=== PATIENT | female | born 1995 | race Caucasian/White ===

== ENCOUNTER 2025-10-21 12:57 | Outpatient (REF) | payer OTHER, SELFPAY ==
--- OUTSIDE RECORDS SUMMARY | 2025-10-18 10:45 | XMS_ITS | Encounter Summary ---
Author Organization [facility] [place] [address] Care Team Providers Care Bioinformatics Analyst Name Role Phone Physician, No Pcp Primary Care Provider Unavaila ble Reason for Visit * Reason Comments Routine Visit Encounter Details Date Type Department Care Team (Late st Contact Info) Description 10/18/2025 10:45 AM EST Routine Obstetrics and Gynecology - [address] [place], [place] [phone] Laura Snowden DO [address] [place], [place] 19 weeks gestation of (Primary Dx); Obesity in ; Subclinical hyperthyroidism Social History Tobacco Use Types Packs/Day Years Used Date Smoking Tobacco: Never Smokeless Tobacco: Never Alcohol Use Standard Drinks/Week Comments Not Currently 0 (1 standard drink = 0.6 oz pur e alcohol) Housing Instability Answer Date Recorde d Are you worried that in the next 2 months you may not have stable housing? No 08/12/2025 Food Access & Nutrition Answer Date Rec orded Do you have access to a vari ety of food including fruits and vegetables? Yes 08/12/2025 Access to Healthcare Answer Date Record ed Within the last 3 months, tammy vaughn many times did you visit the emergency department for your medical care? 0 08/12/2025 Health Literacy Answer Date Recorded How often do you need to hav e someone help you when you read instructions, pamphlets, or other written material from your doctor or pharmacy? Sometimes 08/12/2025 Caregiver: How often do you need to have someone help you when you read instructions, pamphlets, or other written material from your doctor or pharmacy? Not on file 08/12/2025 Financial Risk Answer Date Recorded How hard is it for you to pa y for the very basics like food, housing, medical care, and air conditioning / heating? Not very hard 08/12/2025 Transportation Answer Date Recorded Has the lack of transportati on kept you from meetings, work, or from getting things needed for daily living? No Has the lack of transportati on kept you from medical appointments or from getting medications? No 08/12/2025 Social Isolation Answer Date Recorded How often do you feel lonely or isolated from th ose around you? Never 08/12/2025 Food Risk Answer Date Recorded Within the past 12 months we worried whether our food would run out before we got money to buy more. Never true 08/12/2025 Within the past 12 months th e food we bought just didn't last and we didn't have money to get more. Never true 08/12/2025 Dependent Care Answer Date Recorded Do you need help finding or paying for care for your loved ones. For example, attendant child activity or elderly care for an older adult? No 08/12/2025 Education Answer Date Recorded Do you think completing more education or training, like finishing a GED, going to college, or learning a trade, would be helpful for you? N/A 08/12/2025 Employment and Income Answer Date Recor ded During the last four weeks, have you been actively looking for work? No 08/12/2025 Living Situation Answer Date Recorded What is your living situation? Unrecognized valu e 08/12/2025 Estimated Date of Delivery Comme nts Yes 03/12/2026 Based on last me nstrual period of 06/05/2025 Sex and Gender Information Value Date Recorded Sex Assigned at Not on file Legal Sex Female 8:43 PM EST Gender Identity Not on file Sexual Orientation Not on file documented as of this encounter Last Filed Vital Signs Vital Sign Reading Time Taken Comments Blood Pressure 134/79 10/18/2025 10:52 AM EST Pulse - - Temperature - - Respiratory Rate - - Oxygen Saturation - - Inhaled Oxygen Concentration - - Weight 91.2 kg (201 lb) 10/18/2025 10:52 AM EST Height - - Body Mass Index 36.76 08/25/2025 10:23 AM EDT documented in this encounter Progress Notes * Laura Snowden DO - 10/18/2025 10:45 AM EST Cynthia is a 30yo G1 at 19 2/7w presenting for NEENA visit with no concerns. She is not sure if she isfeeling movement yet or not. Denies bleeding and discharge. complicated by subclinical hyperthyroidism and maternal obesity. Discussed with Cynthia and her partner that by now they have received a letter explaining that effective Nov.08, maternity services at [facility] will be suspended. She is still a patient of [facility] collection tellervamsi continue her care here as it has been. We are collaborating with [facility] for delivery there. She expressed understanding. Visit Vitals BP 134/79 Wt 91.2 kg (201 lb) LMP 06/05/2025 BMI 36.76 kg/m?? OB Status Smoking Status Never BSA 1.92 m?? FH: at umbilicus FHT: 145bpm survey next week AFP ordered Endocrinology consult next week Follow up in 4 weeks or sooner with any concerns Laura Snowden DO documented in this encounter Plan of Treatment Upcoming Encounters Date Type Department Care Team (Late st Contact Info) Description 10/27/2025 10:00 AM EST Ancillary Procedure Maternal Medicine - [address] [phone] 11/17/2025 10:30 AM EST Routine Obstetrics and Gynecology - [facility] [address] [place] [address] [facility] [place] [phone] documented as of this encounter Results * Alpha fetoprotein, maternal (10/18/2025 11:20 AM EST) Physician Phone Number Not Provided 10/21/2025 6:24 PM EST [facility] Notes to Laboratory Not Provided 10/21/2025 6:24 PM EST [facility] Weight (lbs) 201 10/21/2025 6:24 PM EST [facility] Expected Due Date (MM/DD/YYYY) [id number] 10/21/2025 6:24 PM EST [facility] Expected Due Date Based On? LMP 10/21/2025 6:24 PM EST [facility] Twin ? No - Singletons 10/21/2025 6:24 PM EST [facility] Race White 10/21/2025 6:24 PM EST [facility] Insulin Dependent Diabetic? No 10/21/2025 6:24 PM EST [facility] Does Patient Currently Smoke Cigarettes? No 10/21/2025 6:24 PM EST [facility] Repeat Screen for Current ? No 10/21/2025 6:24 PM EST [facility] Previous w/ Neural Tube Defect? No 10/21/2025 6:24 PM EST [facility] IVF ? No 10/21/2025 6:24 PM EST [facility] Screen Result Negative Negative 10/21/2025 6:24 PM EST [facility] Age at LAZARO (years) 30 10/21/2025 6:24 PM EST [facility] Gestational Age (weeks) 19 10/21/2025 6:24 PM EST [facility] Gestational Age (days) 2 10/21/2025 6:24 PM EST [facility] Weight (lbs) 201 10/21/2025 6:24 PM EST [facility] Multiple Gestation Single 10/21/2025 6:24 PM EST [facility] Ethnic Origin White 10/21/2025 6:24 PM EST [facility] Insulin Dependent Diabetes None 10/21/2025 6:24 PM EST [facility] Smoker? No 10/21/2025 6:24 PM EST [facility] AFP 29.5 ng/mL 10/21/2025 6:24 PM EST [facility] AFP MOM 0.69 10/21/2025 6:24 PM EST [facility] Gestational Age Method LAZARO 10/21/2025 6:24 PM EST [facility] Comment:The gestational age is based on an LAZARO of 03[birth year]12/26. Interpretation SeeBelow 10/21/2025 6:24 PM EST [facility] Comment: This is the initial sample received at [facility] for MSAFP SCREEN NEGATIVE FOR NEURAL TUBE DEFECTS. Additional Test Information: The MSAFP does not provide a risk estimate or a diagnosis. Incorrect or missing information may considerably alter results. A positive report is indicated when the AFP MOM is greater than or equal to 2.20. Maternal weights less than 65 lbs or greater than 440 lbs are truncated and the AFP MOM is not adjusted beyond those limits. Assessment is adjusted for insulin-dependent diabetic status, weight, race and smoking. Previous pregnancies affected with a neural tube defect may significantly affect results. Test performed at [facility], [address], [place] [address] Anel Petersen MD, PhD - Fish Hatchery Laborer Blood Venous blood specimen / Unknown Venipuncture / Unknown 10/18/2025 11:20 AM EST 10/18/2025 11:20 AM EST Laura Snowden DO LAB BLOOD ORDERABLES Final Re sult [facility] [address] [place] [address] documented in this encounter Visit Diagnoses Diagnosis 19 weeks gestation of - Primary Obesity in Obesity complicating , childbirth, or the puerperium, unspecified as to episode of care or not applicable Subclinical hyperthyroidism Thyrotoxicosis without mention of goiter or other cause, without mention of thyrotoxic crisis or storm documented in this encounter Additional Health Concerns Assessment Noted Time PHQ-9 Depression Total Score: 0 08/24/20 25 11:27 AM EDT documented as of this encounter Care Teams Bioinformatics Analyst Relationship Specialty Start Date End Date Physician, No Pcp PCP - General 07/09/25 documented as of this encounter
--- OUTSIDE RECORDS SUMMARY | 2025-10-18 11:15 | XMS_ITS | Encounter Summary ---
Author Organization [facility] [place] [address] Care Team Providers Care Body Stylist Name Role Phone Physician, No Pcp Primary Care Provider Unavaila ble Encounter Details Date Type Department Care Team (Late st Contact Info) Description 10/18/2025 11:15 AM EST Lab Draw Station [facility] [address] [place] [address] 19 weeks gestation of Social History Tobacco Use Types Packs/Day Years [...] care for your loved ones. For example, children's institution attendant or elderly care for an older adult? [...] on file documented as of this encounter Plan of Treatment Upcoming Encounters Date Type Department Care Team (Late st Contact Info) Description 10/27/2025 10:00 AM EST Ancillary Procedure Maternal Medicine - [address] [phone] 11/17/2025 10:30 AM EST [facility] [address] [facility] [place] [address] Estrellita Doll CNM [address] [place] [phone] documented as of this encounter Procedures Procedure Name Priority Date/Time Associated Diagnosis Comments ALPHA FETOPROTEIN, MATERNAL Routine 10/18/2025 11:20 AM EST 19 weeks gestation of documented in this encounter Results * Alpha fetoprotein, maternal (10/18/2025 11:20 AM EST) Physician Phone Number Not Provided 10/21/2025 6:24 PM EST [facility] Notes to Laboratory Not Provided 10/21/2025 6:24 PM EST [facility] Weight (lbs) 201 10/21/2025 6:24 PM EST [facility] Expected Due Date (MM/DD/YYYY) [id number] 10/21/2025 6:24 PM EST [facility] Expected [...] This is the initial sample received at [facility] for MSAFP SCREEN NEGATIVE FOR NEURAL [...] may significantly affect results. Test performed at [facility], [address], [place] [address] Anel Petersen MD, PhD - Well Drill Operator Blood Venous blood specimen / Unknown Venipuncture / Unknown 10/18/2025 11:20 AM EST 10/18/2025 11:20 AM EST Laura Snowden DO LAB BLOOD ORDERABLES Final Re sult [facility] [address] [place] [address] documented in this encounter Visit Diagnoses Diagnosis 19 weeks gestation of documented in this encounter Additional Health Concerns Assessment Noted Time PHQ-9 Depression Total Score: 0 08/24/20 11:27 AM EDT documented as of this encounter Care Teams Body Stylist Relationship Specialty Start Date End Date Physician, No Pcp PCP - General 07/09/25 documented as of this encounter
[2025-10-21 15:35] LABS: Free T4 (Free Thyroxine) 1.15 ng/dL (0.71-1.85); Thyroid Stimulating Hormone < 0.01 uIU/mL (0.32-4.0)
--- OUTSIDE RECORDS SUMMARY | 2025-10-21 19:33 | XMS_ITS | Encounter Summary ---
Author Organization [facility] [place] [address] Care Team Providers Care Diversional Therapist'S Assistant Name Role Phone Physician, No Pcp Primary Care Provider Unavaila ble Encounter Details Date Type Department Care Team ([facility] st Contact Info) Description 08/30/2025 Results Follow-Up Obstetrics and Gynecology - [address] [phone] Laure Maldonado RN Social History Tobacco Use Types Packs/Day Years [...] care for your loved ones. For example, special needs child caregiver or elderly care for an older adult? [...] AM EST Ancillary Procedure Maternal Medicine - [address] [phone] 11/17/2025 10:30 AM EST Routine Obstetrics and Gynecology - [address] [place] [address] Estrellita Doll, JOAO [address] [place] [phone] documented as of this encounter Visit Diagnoses Not on filedocumented in this encounter Additional Health Concerns Assessment Noted Time PHQ-9 Depression Total Score: 0 08/24/20 11:27 AM EDT documented as of this encounter Care Teams Diversional Therapist'S Assistant Relationship Specialty Start Date End Date Physician, No Pcp PCP - General 07/09/25 documented as of this encounter
--- OUTSIDE RECORDS SUMMARY | 2025-10-21 19:33 | XMS_ITS | Encounter Summary ---
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 For example, summer child caregiver or elderly care for an [...] on file documented as of this encounter Progress Notes * Ileana Flynn - 09/03/2025 1:41 PM EDT . documented in this encounter Plan of Treatment Upcoming Encounters Date Type Department Care Team (Late st Contact Info) Description 10/27/2025 10:00 AM EST Ancillary Procedure Maternal Medicine - [place] [address] [place] [address] 11/17/2025 10:30 AM EST Routine Obstetrics and Gynecology - [facility] [place] [phone] Estrellita Doll [address] [phone] documented as of this encounter Visit Diagnoses Not on filedocumented in this encounter Additional Health Concerns Assessment Noted Time PHQ-9 Depression Total Score: 0 08/24/20 11:27 AM EDT documented as of this encounter Care Teams Rcis Relationship Specialty Start Date End Date Physician, No Pcp PCP - General 07/09/25 documented as of this encounter
--- OUTSIDE RECORDS SUMMARY | 2025-10-21 19:33 | XMS_ITS | Encounter Summary ---
Author Organization [facility] [place] [address] Care Team Providers Care Side Puller Name Role Phone Physician, No Pcp Primary Care Provider Unavaila ble Encounter Details Date Type Department Care Team (Late st Contact Info) Description 10/21/2025 Telephone Obstetrics and Gynecology - [address] [place] [phone] Estrellita Doll, SHAILESH [address] [place] [phone] Social History Tobacco Use Types Packs/Day Years [...] ed Within the last 3 months, ho w many times did you visit the emergency [...] for your loved ones. For example, children's nursery assistant or elderly care for an older adult? [...] AM EST Ancillary Procedure Maternal Medicine - [address] [phone] 11/17/2025 10:30 AM EST Routine Obstetrics and Gynecology - [address] [place] [address] Estrellita Doll CNM [address] [place] [phone] documented as of this encounter Visit Diagnoses Not on filedocumented in this encounter Additional Health Concerns Assessment Noted Time PHQ-9 Depression Total Score: 0 08/24/20 11:27 AM EDT documented as of this encounter Care Teams Side Puller Relationship Specialty Start Date End Date Physician, No Pcp PCP - General 07/09/25 documented as of this encounter
--- OUTSIDE RECORDS SUMMARY | 2025-10-21 19:33 | XMS_ITS | Clinical Summary ---
Author Organization [facility] [address] [facility] Address [address] [facility] [place] [address] Phone Care Team Providers Care Criminal Lawyer Name Role Phone Physician, No Pcp Primary Care Provider Unavaila ble Allergies Active Allergy Reactions Criticality Noted Date Comments Nectarine GI intolerance 08/25/2025 Tree Nuts Itching 08/25/2025 Rast showed allergy to walnuts only Medications vitamin iron fum-folic acid 27-0.8 mg per tablet Take 1 tablet by mouth 1 (one) time each day. Active Active Problems Problem Noted Date Diagnosed Date Carrier of fragile X chromosome 09/02/2025 Overview (09/02/2025): Horizon 14 results: INTERMEDIATE ALLELE size detected for Fragile X Syndrome (X-linked) An intermediate size 47 CGG repeat allele and a normal size 30 allele were detected in the FMR1 genes. This individual is not at increased risk to have a child with Fragile X Syndrome. In some cases, intermediate size repeat alleles can expand to a premutation (carrierstatus) in future generations. 45-54 CGG repeats: Intermediate result You are NOT at increased risk to have children with Fragile X Syndrome. There is a small chance for your children to be Fragile X p remutation carriers. You are not at risk to develop medical problems due to your intermediate Fragile X test result. About 1 in every 50 women has an intermediate result, meaning they have between 45 and 54 CGG repeats in one of their two FMR1 genes. This does not cause any known medical problems and women with this size CGG result are not at increased risk to have a child with Fragile X Syndrome Obesity in 08/25/2025 Overview (08/25/2025): BMI 34.75 HgbA1C and 1 hour GTT at initial labs ASA 162mg at 12 weeks until delivery Detailed anatomy ultrasound Repeat GTT 24-28 weeks if early is normal Pre-preg BMI 35-39.9: NST weekly at 37 weeks Pre-preg BMI >40: NST weekly at 34 weeks Pre-preg BMI >45: NST weekly at 32 weeks Growth US at 32 and 36 weeks for BMI >40 BMI of 50 by 28wks transfer to [facility] DVT prophylaxis- Lovenox if CS and BMI >35 Encounter for supervision of normal first in first trimester 08/24/2025 Overview (08/31/2025): 1. [facility] site: [facility]: [address] [place] [address] ([phone]) 2. Delivery site: [facility] 3. Dating criteria: LMP 4. Blood type: Unknown 6. Genetic screening: Date: Result: Panorama: low risk XX Horizon: Ordered Nuchal: Scheduled- 09/08 at 1100am Survey: MSAFP: 7. GBS: Date: 8. FOB name: Joseph Pappas [phone] 9. Plans A. Epidural or other pain management - B. Labor support identified - C. Tdap - Date: Flu - Date: D. Breast or Bottle feed: E. Baby's name - F. Circumcision - 10. Hospital Course: Subclinical hyperthyroidism 04/17/2022 Overview (09/08/2025): Was seen by Dr Canela - Adult endocrine 02/17/2021- recommended followup thyroid levels Lab Results Component Value Date TSH <0.05 (L) 08/25/2025 G2TWOUR 236.90 (H) 08/25/2025 09/07/25 Nuchal appt MFM recommendations: * Serial growth ultrasounds recommended. * Please obtain an MFM consultation if desired. Per UpToDate treatment is not indicated if asymptomatic Endo referral placed TrAb Component Latest Ref Rng 08/25/2025 TRAb (TSH Receptor Binding Antibody) <=1.75 IU/L 1.08 Labs: TSH, free T4, total T3 , TRAb (order # [id number]) at initial OB Urgent Endocrinology referral at diagnosis - pt referred to [place] endocrinology Propoylthiouracil first trimester (to be prescribed by Endo) Methimazole 2nd and 3rd May need a beta chaparro for symptomatic control Total T4 and triiodothyronine (T3) should be maintained at 1.5 times above the non reference range MFM consult Detailed anatomy US Growth Q4 weeks for women with TRab Inform Peds at delivery if TRab positive Deliver by due date Dysmenorrhea 06/07/2014 Estimated Date of Delivery Comme nts Yes 03/12/2026 Based on last me nstrual period of 06/05/2025 Encounters Date Type Department Care Team Description 10/21/2025 Telephone Obstetrics and Gynecology - [address] [phone] Laura Snowden DO 10/21/2025 Telephone Obstetrics and Gynecology - [address] [phone] Estrellita Doll CNM 10/18/2025 11:15 AM EST Lab Draw Station - [address] 19 weeks gestation of 10/18/2025 10:45 AM EST Routine Obstetrics and Gynecology - [address] [phone] Laura Snowden DO 19 weeks gestation of (Primary Dx); Obesity in ; Subclinical hyperthyroidism 10/11/2025 Telephone Obstetrics and Gynecology - [address] [phone] Laura Snowden DO 09/17/2025 Results Follow-Up Obstetrics and Gynecology - [address] [place] [phone] Adali Soria MA 09/16/2025 11:00 AM EDT Initial Obstetrics and Gynecology - [address] [place] [phone] Laura Snowden, DO 09/08/2025 Results Follow-Up Obstetrics [facility]necology - [facility] [place] [phone] Sunitha Pascual RN 09/07/2025 1:00 PM EDT Ancillary Procedure Maternal Medicine - [address] [phone] Encounter for routine screening for malformation using ultrasonics; Encounter for nuchal translucency testing; Encounter for screening for malformation; Obesity affecting in first trimester; Encounter for screening for nuchal translucency 09/03/2025 Telephone [facility] [phone] Laura Snowden, DO 09/02/2025 Results [facility] [address] [phone] Laura Snowden, DO 08/31/2025 Results [facility] [address] [place], [place] [address] [phone] Laura Snowden, DO 08/30/2025 Results Follow-Up Obstetrics and Gynecology - [address] [phone] Laure Maldonado RN 08/26/2025 Telephone Obstetrics and Gynecology - [address] [phone] Abbi Fagan, TIFFANI 08/25/2025 10:00 AM EDT Clinical Support Obstetrics and Gynecology - [address] [phone] Encounter for screening of mother (Primary Dx); Encounter for routine screening for malformation using ultrasonics; Encounter for nuchal translucency testing; Encounter for supervision of normal first in first trimester; Obesity in 08/13/2025 10:57 AM EDT - 08/13/2025 11:59 PM EDT Hospital Encounter Ultrasound - [facility] [address] [facility] [place] [facility] [place] [address] test positive Discharge Disposition: Home or Self Care 08/13/2025 9:30 AM EDT Office Visit Obstetrics and Gynecology - [facility] [address] [place] [phone] Yolanda Sheth, JOAO test positive (Primary Dx) from Last 3 Months Surgical History Surgery Date Site/Laterality Comments FEMUR FRACTURE SURGERY Right at 1.5 years old had t ohave pin placed Family History Medical History Relation Name Comments Asthma Father Diabetes Maternal Grandfather Allergies Maternal Grandmother Thyroid disease Mother Other: cva Paternal Grandmother Asthma Sister Breast cancer Neg Hx Prostate cancer Neg Hx Uterine cancer Neg Hx Relation Name Status Comments Father Alive 12/27/72 Maternal Grandfather Maternal Grandmother Alive Mother Alive 04/24/75 Paternal Grandfather Paternal Grandmother Sister Social History Tobacco Use Types Packs/Day Years Used Date Smoking Tobacco: Never Smokeless Tobacco: Never Tobacco Cessation:Counseling Given: Not Answered Alcohol Use Standard Drinks/Week Comments Not Currently [...] care for your loved ones. For example, child abuse worker or elderly care for an older adult? [...] on file Sexual Orientation Not on file Obstetrics History Para Term AB IAB SAB Ectopic Multiple Livin g Live Births 1 0 0 0 0 0 0 0 Date Outcome GA Total Labor Labor/2nd/3rd Weight Sex Type Anes PTL Geeta A1 A5 Name Clin Current Summary Episode Dates Number of Fetuses Estimated Date of Delivery 08/24/2025 - Present (10/21/2025) 1 03/12/2026 (set by Mary Rojo RN on 08/24/2025 based on Last Menstrual Period on 06/05/2025) Dating Summary Based On LAZARO GA Diff Last Menstrual Period on 06/05/2025 03/12/2026 Working Ultrasound on 08/13/2025 03/15/2026 -3d GA:9w3d Overview and Plan :[place] Delivery Plans Post-Delivery Plans Planned delivery method:Vaginal Feeding intentions:Exclusive Planned delivery location:[facility] Circumcis ion requested:Provider Performed Acceptable blood products:All Vitals Pregravid Weight Height TWG (As of 10/21/2025) Pregrav id BMI 86.2 kg (190 lb) 1.575 m (62 ) 4.99 kg (11 lb) 34.74 Notes Progress Notes - Routine Pre - 10/18/2025 - GA:19w2d 10/18/2025 - w2d - Laura Orosco DO Paula is a 30yo G1 at 19 2/7w presenting for NEENA visit with no concerns. She is not sure if she is feeling movement yet or not. Denies bleeding and discharge. complicated by subclinical hyperthyroidism and maternal obesity. Discussed with Paula and her partner that by now they have received a letter explaining that effective Nov.08, maternity services at [facility] will be suspended. 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 We are collaborating with [facility] for delivery there. She expressed understanding. Visit Vitals BP 134/79 Wt 91.2 kg (201 lb) LMP 06/05/2025 BMI 36.76 kg/m OB Status Smoking Status Never BSA 1.92 m FH: at umbilicus FHT: 145bpm survey next week AFP ordered Endocrinology consult next week Follow up in 4 weeks or sooner with any concerns Laura Snowden DO Progress Notes - Initial Pre - 09/16/2025 - GA:14w5d 09/16/2025 - 14w5d - Laura Orosco DO 09/16/2025 Paula Moyer HPI: Paula is a at 14w5d, Estimated Date of Delivery: 03/12/26, presenting for initial visit. Dating is based on LMP. She feels well, is eating normally with only mild self-resolving nausea. Denies VB and bothersome discharge. Her partner is aware of her and very happy/supportive. This is complicated by subclinical hyperthyroidism currently on no medication. She has an Endocrinology appt next month. Intake labs reviewed, wnl. Panorama low risk, gender reveal later this month ROS: Gen: denies persistent STEPHENS, F/C CV: denies CP and palpitations RESP: denies new cough and SOB GI: as above : denies dysuria and incontinence STREET LIGHT INSPECTOR: See HPI PSYCH: happy about the OB History Para Term AB Living 1 0 0 0 0 0 SAB IAB Ectopic Multiple Live Births 0 0 0 0 0 # Outcome Date GA Lbr Donal/2nd Weight Sex Type Anes PTL Lv 1 Current Medical History[1] Surgical History[2] Social History Socioeconomic History Marital status: Single Spouse name: Not on file Number of children: Not on file Years of education: Not on file Highest education level: Not on file Occupational History Not on file Tobacco Use Smoking status: Never Smokeless tobacco: Never Substance and Sexual Activity Alcohol use: Not Currently Drug use: Not Currently Types: Marijuana/Cannabis Comment: quit with Sexual activity: Yes Comment: for 3 years Other Topics Concern Not on file Social History Narrative Lives with mother and cousin. [employer] Finisher Helper - [employer] Pets: dog EXAM: Vitals: 09/16/25 1105 BP: 126/62 GEN: A+Ox3, NAD CV: regular rate RESP: non-labored breathing ABD: soft, NTTP, FHT 150bpm by doppler STREET LIGHT INSPECTOR: a speculum was used for a portion of this exam External Genitalia: normal with no lesions or discharge Urethra: midline without discharge Vagina: normal mucosa with scant discharge Cervix: closed, nulliparous, no CMT EXT: moves all equally PSYCH: affect appropriate Assessment: 1. 14 weeks gestation of 2. Screening for cervical cancer Pap smear 3. Obesity in 4. Subclinical hyperthyroidism Plan: Congratulated Paula on her Reviewed collaborative practice at [facility] Rn Labor And Delivery Reviewed delivery at [facility] Reviewed Laborist coverage at [facility] Reviewed first trimester warning signs and reasons to call Reviewed call system Reviewed safe medications in Labs ordered: pap, GC/CT/Trich screening Imaging ordered: NA - survey scheduled Follow up in 4 weeks or sooner with any concerns Laura Snowden DO [1] No past medical history on file. [2] Past Surgical History: Procedure Laterality Date FEMUR FRACTURE SURGERY Right at 1.5 years old had t ohave pin placed Progress Notes - Clinical Wilkinson pport - 08/25/2025 - GA:11w4d 08/25/2025 - w4d - Laure Maldonado RN Paula Moyer is a 30 y.o. old female at 11w4d. This is Planned. The patient feels happy about the . The FOB is supportive. His name is Joseph. This is their first baby. Patient's last menstrual period was Patient's last menstrual period was 06/05/2025. (exact date)., which would make her currently 11w4d with an Estimated Date of Delivery: 03/12/26. She is certain of her date. An ultrasound has been ordered to confirm dating Patient has significant history of: Question of sublclinical hyperthyroid-will send for labs with Ob panel. BMI 34 OB Past Medical History: Have you had or do you currently have: Diabetes? No Hypertension? No Heart disease, Mitral valve Prolapse, or Rheumatic fever? No An Autoimmune disease such as Lupus or Rheumatoid Arthritis? No Epilepsy, Seizures, or Spells? No Migraine Headaches? No Stroke or loss of function or sensation? No Additional Questions: Have you ever been treated for anxiety and/or depression? No Are you having problems with crying spells or loss of self-esteem? No Have you ever required psychiatric care? No Have you ever had hepatitis, liver disease or jaundice? No Have you ever been treated for blood clots in your veins, deep venous thrombosis, inflammation in the veins, thrombosis, phlebitis, pulmonary embolism or varicosities? No Have you had excessive bleeding after surgery or dental work? No Do you bleed more than other women after a cut or scratch? No Do you have a history of anemia? No Have you ever had Thyroid problems or taken Thyroid medications? Yes-? Of hyperthyroid in 2020 Do you have any other Endocrine Problems (ie. PCOS)? No Have you ever been in a major accident or suffered serious trauma? No Within the last year, has anyone hit, slapped, kicked or otherwise hurt you? No In the last year, has anyone forced you to have sex when you didn't want to? No Do you feel safe at home? Yes Have you ever received a blood transfusion? No Would you refuse a blood transfusion if a doctor judged to be medically necessary? No Would you rather than receive a blood transfusion? No If you answered yes to the above questions, is this for bahai reasons? N/A Do you know what your blood type is or if you are Rh Negative? unknown Have you ever had abnormal antibodies in your blood? unknown Have you ever had asthma? No Have you every had Tuberculosis? No Have you ever had any breast problems? No Have you ever breast fed? N/A Have you ever had any gynecological surgical procedures such as cervical conization, LEEP procedure, Laser treatment, cryosurgery of the cervix or dilation and curettage, etc? No Have you had any other surgical procedures? Yes-femur fracture repair at 1.5 yrs old Have you ever been hospitalized overnight for a non-surgical reason excluding normal delivery? No Have you ever had anesthesia complications? No Have you ever had an abnormal pap smear? No Do you have a history of abnormalties of the uterus? No Did your mother take LOY or any other hormones when she was with you? No Did it take more than one year to become ? No Have you ever been evaluated or treated for infertility? No Is there a history of medical problems in your family which you feel might adversely affect your health or ? No Do you have any other problems we have not asked you about which you feel may be important for us to know for this ? No Do you currently have any of the following symptoms since your last menstrual period: Abdominal pain, blood in the stool or urine, chest pain, shortness of breath, coughing or vomiting up blood, your heart racing or skipping beats, nausea and/or vomiting, pain on urination, or vaginal discharge or vaginal bleeding? No Genetic Screening/Teratology Counseling- Includes patient, baby's father, or anyone in either family with: Patient's age 35 years or older as of estimated date of delivery No Thalassemia (Armenian, Uruguayan, Mediterranean, or background): MCV less than 80 No Neural tube defect (Meningomyelocele, Spina bifida, or Anencephaly) No Congenital heart defect No Down syndrome No Derick-Sachs (Ashkenazi Congregational, Cajun, Citizen Of [place] Burmese) No Jia disease (Ashkenazi Congregational) No Familial dysautonomia (Ashkenazi Congregational) No Sickle cell disease or trait () No Hemophilia or other blood disorders No Muscular dystrophy No Cystic fibrosis No Delores's chorea No Intellectual disability and/or autism No If yes, was the person tested for Fragile X? N/A Other inherited genetic or chromosomal disorder No Maternal metabolic disorder (eg. Type 1 diabetes, PKU) No Patient or baby's father had child with defects not listed above No Recurrent loss, or a stillbirth No Medications (including supplements, vitamins, herbs, or OTC drugs)/illicit/recreational drugs/alcohol since last menstrual period Yes- amoxicillin for strep throat If yes, agent(s) and strength/dosage: Any other No OB Infection History: Do you object to being tested for Hepatitis B? No Do you object to being tested for HIV? No Do you feel that you are at high risk for coming contact with the AIDS virus? No Have you ever been treated for tuberculosis? No Have you ever received the BCG vaccine? No Have you ever had a positive skin test for Tuberculosis? No Do you live with someone who has Tuberculosis? No Have you ever been exposed to Tuberculosis? No Do you have Genital Herpes? No Does your partner have Genital Herpes? No Have you had a rash or viral illness since your last period? No Have you ever had Gonorrhea, Chlamydia, Syphilis, Venereal Warts, Trichomoniasis, Pelvic Inflammatory Disease (PID) or any other sexually transmitted disease? No Do you know if you are a Group B Streptococcus Carrier? unknown Did you have the Chicken Pox/Varicella? no Were you vaccinated against Chicken Pox/Varicella? yes Have you had any other infectious diseases? No Paula Moyer has been instructed on the following: random urine drug screening due to history of drug use and an initial urine drug screen has been ordered. Paula Moyer has also been informed of the rail signal designer provider recommendation for first trimester nuchal lucency testing to be performed during her . Paula Moyer has also been made aware of the time sensitive nature for this testing to be completed. . The patient now has a gestational age of 11w4d. The patient would be due for this testing prior to 14 weeks gestation which would be on 09/11/2025. Ethnicity Based Genetic Testing has been reviewed and the [employer] information sheet has been provided to the patient in their After Visit Summary. The patient was also advised that genetic testing may not be covered by all insurances. The patients states that they understand this information. The patient states that she has not had the genetic screening for Horizon 14 done in the past during a previous . The patient has agreed that she does want genetic testing for Horizon 14 and Panorama with gender-would like gender in envelope. The following Labs have been ordered: Obstetric Panel, HgA1c, Early Glucose Screen, HIV with verbal Consent, Hepatitis C, Urine Culture, UDS, Panorama with gender, and Horizon 14 panel She is aware that her insurance may or may not cover Panorama and/or Horizon 14 test and discussed lin only little for test(s) - info given today in her after visit summary . She would like to proceed with testing. For Horizon Carrier Screening, if patient has [employer], [employer] or [employer] insurances: Chooses to Bill insurance and only have the Horizon 4 Panel done (Cystic Fibrosis, Fragile X, Spinal Muscular Atrophy and Duchenne Muscular Dystrophy) Electronically signed by: Laure Maldonado RN 08/25/25 10:29 AM EDT Last Filed Vital Signs Vital Sign Reading Time Taken Comments Blood Pressure 134/79 10/18/2025 10:52 AM EST Pulse 99 08/13/2025 9:36 AM EDT Temperature - - Respiratory Rate - - Oxygen Saturation - - Inhaled Oxygen Concentration - - Weight 91.2 kg (201 lb) 10/18/2025 10:52 AM EST Height 157.5 cm (5' 2 ) 08/25/2025 10:23 AM EDT Body Mass Index 36.76 08/25/2025 10:23 AM EDT Plan of Treatment Upcoming Encounters Date Type Department Care Team (Late st Contact Info) Description 10/27/2025 10:00 AM EST Ancillary Procedure Maternal Medicine - [address] [phone] 11/17/2025 10:30 AM EST Routine Obstetrics and Gynecology - [facility] [address] [place] [address] Lavon, Estrellita, CN[address] [phone] Health Maintenance Due Date Last Done Comments DTaP,Tdap,and Td Vaccines (7 - Td or Tdap) 06/23/2019 06/23/2009, 10/28/2001, 12/27/1998, Additional history exists Cholesterol Screening (Lipid Panel) 07/09/2025 COVID-19 Vaccine ( - season) 2025 Influenza Vaccine (#1) 2025 Social Influencers of Health Screening 08/12/2026 08/12/2025 Cervical Cancer Screening: Pap Smear 09/16/2028 09/16/2025, 09/16/2025, 03/03/2019 Hepatitis B Vaccines Completed 04/07/1998, 1997, 1997 HIB Vaccines Completed 09/27/1998, 01/03, 1997, Additional history exists IPV Vaccines Completed 10/28/2001, 09/02, 07/12/1998, Additional history exists Meningococcal ACWY Vaccine Aged Out 01/24/2012 N o longer eligible based on patient's age to complete this topic HPV Vaccines Completed 03/03/2019, 01/2018, 01/03/2018 Depression Screening Completed 08/24/2025 HIV Screening Completed 08/25/2025 Hepatitis C Screening Completed 08/25/2025 Hepatitis A Vaccines Aged Out No long er eligible based on patient's age to complete this topic Meningococcal B Vaccine Aged Out No l onger eligible based on patient's age to complete this topic Pneumococcal Vaccine: Pediatrics (0 to 5 Years) and At-Risk Patients (6 to 49 Years) Aged Out No longer eligible based on patient's age to complete this topic RSV Immunization Adult Patients (No Doses Required) Completed RSV Immunization Patients Under 20 months Aged Out No longer eligible based on patient's age to complete this topic Procedures Procedure Name Priority Date/Time Associated Diagnosis Comments ALPHA FETOPROTEIN, MATERNAL Routine 10/18/2025 11:20 AM EST 19 weeks gestation of CHLAMYDIA TRACHOMATIS AND NEISSERIA GONORRHOEAE BY TMA, THINPREP Routine 09/16/2025 11:28 AM EDT Screening for cervical cancer PAP SMEAR Routine 09/16/2025 11:28 AM EDT Screening for cervical cancer HPV WITH REFLEX GENOTYPE Routine 025 11:28 AM EDT Screening for cervical cancer TRICHOMONAS VAGINALIS PCR Routine 09/16/2025 11:28 AM EDT Screening for cervical cancer US OB LESS 14 WKS NUCHAL MEASUREMENT Routine 09/07/2025 12:52 PM EDT Encounter for screening for nuchal translucency Encounter for screening for malformation Obesity affecting in first trimester US OB LESS 14 WKS SINGLE OR FIRST GESTATION Routine 09/07/2025 12:52 PM EDT Obesity affecting in first trimester Encounter for nuchal translucency testing Encounter for screening for malformation HORIZON 14, YOHANNES Routine 09/02/2025 2: 00 PM EDT PANORAMA TEST Routine 10:19 AM EDT CBC WITH AUTO DIFFERENTIAL Routine 08/25/2025 12:18 PM EDT Encounter for screening of mother GTT GESTATIONAL 1 HOUR Routine 12:18 PM EDT Encounter for screening of mother VARICELLA ZOSTER ANTIBODY IGG Routine 08/25/2025 12:18 PM EDT Encounter for screening of mother HEPATITIS B SURFACE ANTIGEN WITH CONFIRMATION Routine 08/25/2025 12:18 PM EDT Encounter for screening of mother CBC AND DIFFERENTIAL Routine 08/25/2025 12:18 PM EDT Encounter for screening of mother DRUG ABUSE SCREEN EXPANDED WITH REFLEX CONFIRMATION, URINE Routine 08/25/2025 12:18 PM EDT Encounter for screening of mother HEPATITIS C ANTIBODY Routine 08/25/2025 12:18 PM EDT Encounter for screening of mother HIV 1, 2 ANTIBODY, P24 ANTIGEN WITH REFLEX TO DIFFERENTIATION Routine 08/25/2025 12:18 PM EDT Encounter for screening of mother RUBELLA ANTIBODY IGG Routine 08/25/2025 12:18 PM EDT Encounter for screening of mother TREPONEMA PALLIDUM ANTIBODY WITH REFLEX TO RPR AND PARTICLE AGGLUTINATION Routine 08/25/2025 12:18 PM EDT Encounter for screening of mother TYPE AND SCREEN Routine 08/25/2025 12:18 PM EDT Encounter for screening of mother GLUCOSE TOLERANCE TEST, 1H GESTATION Routine 08/25/2025 12:18 PM EDT Encounter for screening of mother HEMOGLOBIN A1C Routine 08/25/2025 12:18 PM EDT Encounter for screening of mother TRIIODOTHYRONINE TOTAL Routine 12:18 PM EDT Encounter for screening of mother THYROXINE FREE Routine 08/25/2025 12:18 PM EDT Encounter for screening of mother THYROID STIMULATING HORMONE Routine 08/25/2025 12:18 PM EDT Encounter for screening of mother THYROTROPIN RECEPTOR ANTIBODY Routine 08/25/2025 12:18 PM EDT Encounter for screening of mother VENIPUNCTURE CHARGE Routine 08/25/2025 1 2:18 PM EDT Encounter for supervision of normal first in first trimester Subclinical hyperthyroidism Obesity in CULTURE URINE Routine 08/25/2025 12:18 PM EDT Encounter for screening of mother US OB LESS 14 WKS SINGLE OR FIRST GESTATION STAT 08/13/2025 11:13 AM EDT test positive POC , URINE DIAGNOSTIC Routine 08/13/2025 9:40 AM EDT test positive from Last 3 Months Results * Alpha fetoprotein, maternal (10/18/2025 11:20 AM EST) Physician Phone Number Not Provided 10/21/2025 6:24 PM EST [facility] Notes to Laboratory Not Provided 10/21/2025 6:24 PM EST [facility] Weight (lbs) 201 10/21/2025 6:24 PM EST [facility] Expected Due Date (MM/DD/YYYY) [id number] 10/21/2025 6:24 PM EST [facility] Expected [...] Age Method LAZARO 10/21/2025 6:24 PM EST [facility] Comment:The gestational age is based on an LAZARO of 03/[birth year]/26. Interpretation SeeBelow 10/21/2025 6:24 PM EST [facility] Comment: This is the initial sample received at [facility] for MSAFP SCREEN NEGATIVE FOR NEURAL [...] may significantly affect results. Test performed at [facility], [address], [place] [address] Anel Petersen MD, PhD - Information Security Blood Venous blood specimen / Unknown Venipuncture / Unknown 10/18/2025 11:20 AM EST 10/18/2025 11:20 AM EST Laura Snowden DO LAB BLOOD ORDERABLES Final Re sult [facility] [address] [place] [address] * Chlamydia trachomatis and neisseria gonorrhoeae by tma, thinprep (09/16/2025 11:28 AM EDT) N. gonorrhoeae, RNA Probe Negative Negative LAB MICROBIOLOGY METHOD 09/17/2025 11:36 AM EDT [facility] Chlamydia, RNA Probe Negative Negative LAB MICROBIOLOGY METHOD 09/17/2025 11:36 AM EDT [facility] Brushing/Spatula Cervix uteri structure / Unknown 09/16/2025 11:28 AM EDT 09/17/2025 6:52 AM EDT us Laura Snowden DO LAB CYTOLOGY ORDERABLES Final Result Performing Organization Address [facility]/ZIP Co de Phone Number [facility] [address] [place] [address], [place] [phone] * HPV with reflex genotype (09/16/2025 11:28 AM EDT) HPV Negative Negative LAB MICROBIOLOGY METHOD 09/17/2025 2:52 PM EDT [facility] Brushing/Spatula Cervix uteri structure / Unknown 09/16/2025 11:28 AM EDT 09/17/2025 6:52 AM EDT us Laura Snowden DO LAB MOLECULAR DIAGNOSTICS ORD ERABLES Final Result Performing Organization Address [facility]/ZIP Co de Phone Number [facility] [address] [place] [address], [place] [phone] * Trichomonas vaginalis molecular study (09/16/2025 11:28 AM EDT) [facility] Trichomonas vaginalis Negative Negative LAB MICROBIOLOGY METHOD 09/17/2025 11:51 AM EDT [facility] Brushing/Spatula Cervix uteri structure / Unknown 09/16/2025 11:28 AM EDT 09/17/2025 6:52 AM EDT us Laura Snowden DO LAB BLOOD ORDERABLES Final Re sult Performing Organization Address City/[facility]/ZIP Co de Phone Number [facility] [address] [place] [address], [place] [phone] * Pap smear (09/16/2025 11:28 AM EDT) Interpretation Negative for intraepithelial lesion or malignancy 09/27/2025 3:14 PM EDT [facility] at 1514 EDT General Categorization Negative 09/27/2025 3:14 PM EDT [facility] Specimen Adequacy Satisfactory for evaluation, endocervical/william sformation zone component absent 09/27/2025 3:14 PM EDT [facility] Pap Methodology Liquid Based Pap Test 09/27/2025 3:14 PM EDT [facility] Disclaimer The Pap test is a screening test which carries an inherent false negative rate. These test results should be correlated with the patient's clinical findings and history. This Pap test was processed using an automated screening system. Technical cytopathology services provided by [facility], at [address] [place] [address] (CLIA # [id number]/Sunshine Maldonado MD, Information Security.) 09/27/2025 3:14 PM EDT [facility] Console Pap Interpretation Reported 09/27/2025 3:14 PM EDT [facility] Brushing/Spatula Cervix uteri structure / Unknown 09/16/2025 11:28 AM EDT 09/16/2025 11:28 AM EDT us Laura Snowden DO LAB CYTOLOGY ORDERABLES Final Result [facility] [address] [place] [address], [place] [phone] * US OB Less 14 Wks Nuchal Measurement (09/07/2025 12:52 PM EDT) Anatomical Region Laterality Modality Body Ultrasound 09/07/2025 12:2 0 PM EDT Narrative 09/08/2025 10:56 AM EDT OBSTETRICS REPORT (Signed Final 09/08/2025 10:56 am) PATIENT INFO: ID #: [id number] : [birth year] (30 yrs)(F) Name: PAULA MOYER Visit Date: 09/07/2025 12:20 pm PERFORMED BY: Attending: Jaimee Diaz MD Performed By: Sarah Tomas RDVT Referred By: Laura Snowden DO Ref. Address: [address] [place] [address] Location: [facility]) SERVICE(S) PROVIDED: US < 14 weeks Abdominal Ultrasound 98465 US Nuchal Translucency 06552 INDICATIONS: Encounter for screening for nuchal Z36.82 translucency Encounter for screening for Z36.3 malformations Obesity complicating , 1st O99.211 trimester 13 weeks gestation of Z3A.13 TECHNIQUE/SCAN QUALITY: Technique: Transabdominal Scan Satisfactory Quality: OB HISTORY: : 1 Term: 0 Brady: 0 SAB: 0 TOP: 0 Ectopic: 0 Livin VITAL SIGNS: Weight (lb) Height BMI 190 5'2 34.75 EVALUATION: Number Of Fetuses: 1 Preg. Location: Intrauterine Heart Rate(bpm): 147 Cardiac Activity: Observed Regular rhythm Presentation: Vertex Placenta Location: Anterior Appearance: Grade 0 Cord Insertion: Visualized Amniotic Fluid YAJAIRA FV: Within Normal Limits BIOMETRY: GESTATIONAL AGE: LMP: 13w 3d Date: 06/05/25 LAZARO: 03/12/26 Best: 13w 3d Det. By: LMP (06/05/25) LAZARO: 03/12/26 1ST TRIMESTER GENETIC SONOGRAM SCREENING: CRL: 66.65 mm G.Age: 13w 0d LAZARO: 03/15/26 Nuc Trans: 1.9 mm Nasal Bone: Present STANDARD ANATOMY: Cranium: Normal appearance Choroid Plexus: Normal appearance Nasal Bone: Present Diaphragm: Normal appearance Stomach: Normal appearance Abdomen: Normal appearance Abdominal Wall: Normal appearance Cord Vessels: Normal 3-Vessel Cord Kidneys: Normal appearance Bladder: Normal appearance Spine: Normal appearance Upper Extremities: Seen Lower Extremities: Seen Other: Cardiac angle is 57.91 degrees CERVIX UTERUS ADNEXA: Cervix Within Normal Limits Abdominally Uterus Size(cm) 13.76 x 8.09 x 7.51 Uterus Vol(ml): 437.73 Anteverted, anteflexed. Within Normal Limits Right Ovary Normal in size and appearance. It is found between the uterus and the pelvic sidewall. Left Ovary Size(cm) 1.91 x 2.1 x 2.82 Vol(ml): 5.92 Normal in size and appearance. It is found between the uterus and the pelvic sidewall. Cul De Sac There is no free fluid in the cul de sac. Adnexa Both adnexae appear unremarkable. COMMENTS: Ms. Moyer is being seen for first trimester screening for aneuploidy. - Her medical history is significant for hyperthyroidism. She was seen by endocrinology. - This is her first . - She had cell free DNA screening. Results were low-risk for all conditions assessed. - Ultrasound findings: The nuchal translucency measurement is < 95th% for the gestational age. - biometry is consistent with dates. Assessment of the anatomy is appropriate for the gestational age. There are no ultrasound findings to suggest aneuploidy. - Plan: 1. A detailed ultrasound and cervical length screening for risk of have been scheduled. - 2. The patient should be offered second trimester MSAFP only, to assess for risk of an open neural tube defect. - 3. Serial growth ultrasounds recommended. - 4. Please obtain an MFM consultation if desired. This ultrasound was read remotely by the physician. Thus, the physician did not communicate/discuss the findings or the limitations of this ultrasound with the patient. T Jaimee Diaz MD Electronically Signed Final Report 09/08/2025 10:56 am Procedure Jaimee Cleveland MD - 09/08/2025 OBSTETRICS REPORT (Signed Final 09/08/2025 10:56 am) PATIENT INFO: ID #: [id number] : [birth year] (30 yrs)(F) Name: PAULA MOYER Visit Date: 09/07/2025 12:20 pm PERFORMED BY: Attending: Jaimee Diaz MD Performed By: Sarah Tomas [facility] Referred By: Laura Snowden DO Ref. Address: [address] [place] [address] Location: [facility] SERVICE(S) PROVIDED: US < 14 weeks Abdominal Ultrasound 90028 US Nuchal Translucency 04185 INDICATIONS: Encounter for screening for nuchal Z36.82 translucency Encounter for screening for Z36.3 malformations Obesity complicating , 1st O99.211 trimester 13 weeks gestation of Z3A.13 TECHNIQUE/SCAN QUALITY: Technique: Transabdominal Scan Satisfactory Quality: OB HISTORY: : 1 Term: 0 Brady: 0 SAB: 0 TOP: 0 Ectopic: 0 Livin VITAL SIGNS: Weight (lb) Height BMI 190 5'2 34.75 EVALUATION: Number Of Fetuses: 1 Preg. Location: Intrauterine Heart Rate(bpm): 147 Cardiac Activity: Observed Regular rhythm Presentation: Vertex Placenta Location: Anterior Appearance: Grade 0 Cord Insertion: Visualized Amniotic Fluid YAJAIRA FV: Within Normal Limits BIOMETRY: GESTATIONAL AGE: LMP: 13w 3d Date: 06/05/25 LAZARO: 03/12/26 Best: 13w 3d Det. By: LMP (06/05/25) LAZARO: 03/12/26 1ST TRIMESTER GENETIC SONOGRAM SCREENING: CRL: 66.65 mm G.Age: 13w 0d LAZARO: 03/15/26 Nuc Trans: 1.9 mm Nasal Bone: Present STANDARD ANATOMY: Cranium: Normal appearance Choroid Plexus: Normal appearance Nasal Bone: Present Diaphragm: Normal appearance Stomach: Normal appearance Abdomen: Normal appearance Abdominal Wall: Normal appearance Cord Vessels: Normal 3-Vessel Cord Kidneys: Normal appearance Bladder: Normal appearance Spine: Normal appearance Upper Extremities: Seen Lower Extremities: Seen Other: Cardiac angle is 57.91 degrees CERVIX UTERUS ADNEXA: Cervix Within Normal Limits Abdominally Uterus Size(cm) 13.76 x 8.09 x 7.51 Uterus Vol(ml): 437.73 Anteverted, anteflexed. Within Normal Limits Right Ovary Normal in size and appearance. It is found between the uterus and the pelvic sidewall. Left Ovary Size(cm) 1.91 x 2.1 x 2.82 Vol(ml): 5.92 Normal in size and appearance. It is found between the uterus and the pelvic sidewall. Cul De Sac There is no free fluid in the cul de sac. Adnexa Both adnexae appear unremarkable. COMMENTS: Ms. Moyer is being seen for first trimester screening for aneuploidy. - Her medical history is significant for hyperthyroidism. She was seen by endocrinology. - This is her first . - She had cell free DNA screening. Results were low-risk for all conditions assessed. - Ultrasound findings: The nuchal translucency measurement is < 95th% for the gestational age. - biometry is consistent with dates. Assessment of the anatomy is appropriate for the gestational age. There are no ultrasound findings to suggest aneuploidy. - Plan: 1. A detailed ultrasound and cervical length screening for risk of have been scheduled. - 2. The patient should be offered second trimester MSAFP only, to assess for risk of an open neural tube defect. - 3. Serial growth ultrasounds recommended. - 4. Please obtain an MFM consultation if desired. This ultrasound was read remotely by the physician. Thus, the physician did not communicate/discuss the findings or the limitations of this ultrasound with the patient. T Jaimee Diaz MD Electronically Signed Final Report 09/08/2025 10:56 am us Laura Snowden DO IMG OB US PROCEDURES Final Re sult * US OB Less 14 Wks Single or First Gestation (09/07/2025 12:52 PM EDT) Only the most recent of2 resultswithin the time period is included. Anatomical Region Laterality Modality Body Ultrasound 09/07/2025 12:2 0 PM EDT Narrative 09/08/2025 10:56 AM EDT OBSTETRICS REPORT (Signed Final 09/08/2025 10:56 am) PATIENT INFO: ID #: [id number] : [birth year] (30 yrs)(F) Name: PAULA MOYER Visit Date: 09/07/2025 12:20 pm PERFORMED BY: Attending: Jaimee Diaz MD Performed By: Sarah Tomas RDVT Referred By: Laura Snowden DO Ref. Address: [address] [place] [address] Location: [facility] SERVICE(S) PROVIDED: US < 14 weeks Abdominal Ultrasound 28273 US Nuchal Translucency 23921 INDICATIONS: Encounter for screening for nuchal Z36.82 translucency Encounter for screening for Z36.3 malformations Obesity complicating , 1st O99.211 trimester 13 weeks gestation of Z3A.13 TECHNIQUE/SCAN QUALITY: Technique: Transabdominal Scan Satisfactory Quality: OB HISTORY: : 1 Term: 0 Brady: 0 SAB: 0 TOP: 0 Ectopic: 0 Livin VITAL SIGNS: Weight (lb) Height BMI 190 5'2 34.75 EVALUATION: Number Of Fetuses: 1 Preg. Location: Intrauterine Heart Rate(bpm): 147 Cardiac Activity: Observed Regular rhythm Presentation: Vertex Placenta Location: Anterior Appearance: Grade 0 Cord Insertion: Visualized Amniotic Fluid YAJAIRA FV: Within Normal Limits BIOMETRY: GESTATIONAL AGE: LMP: 13w 3d Date: 06/05/25 LAZARO: 03/12/26 Best: 13w 3d Det. By: LMP (06/05/25) LAZARO: 03/12/26 1ST TRIMESTER GENETIC SONOGRAM SCREENING: CRL: 66.65 mm G.Age: 13w 0d LAZARO: 03/15/26 Nuc Trans: 1.9 mm Nasal Bone: Present STANDARD ANATOMY: Cranium: Normal appearance Choroid Plexus: Normal appearance Nasal Bone: Present Diaphragm: Normal appearance Stomach: Normal appearance Abdomen: Normal appearance Abdominal Wall: Normal appearance Cord Vessels: Normal 3-Vessel Cord Kidneys: Normal appearance Bladder: Normal appearance Spine: Normal appearance Upper Extremities: Seen Lower Extremities: Seen Other: Cardiac angle is 57.91 degrees CERVIX UTERUS ADNEXA: Cervix Within Normal Limits Abdominally Uterus Size(cm) 13.76 x 8.09 x 7.51 Uterus Vol(ml): 437.73 Anteverted, anteflexed. Within Normal Limits Right Ovary Normal in size and appearance. It is found between the uterus and the pelvic sidewall. Left Ovary Size(cm) 1.91 x 2.1 x 2.82 Vol(ml): 5.92 Normal in size and appearance. It is found between the uterus and the pelvic sidewall. Cul De Sac There is no free fluid in the cul de sac. Adnexa Both adnexae appear unremarkable. COMMENTS: Ms. Moyer is being seen for first trimester screening for aneuploidy. - Her medical history is significant for hyperthyroidism. She was seen by endocrinology. - This is her first . - She had cell free DNA screening. Results were low-risk for all conditions assessed. - Ultrasound findings: The nuchal translucency measurement is < 95th% for the gestational age. - biometry is consistent with dates. Assessment of the anatomy is appropriate for the gestational age. There are no ultrasound findings to suggest aneuploidy. - Plan: 1. A detailed ultrasound and cervical length screening for risk of have been scheduled. - 2. The patient should be offered second trimester MSAFP only, to assess for risk of an open neural tube defect. - 3. Serial growth ultrasounds recommended. - 4. Please obtain an M consultation if desired. This ultrasound was read remotely by the physician. Thus, the physician did not communicate/discuss the findings or the limitations of this ultrasound with the patient. T Jaimee Diaz MD Electronically Signed Final Report 09/08/2025 10:56 am Procedure Jaimee Cleveland MD - 09/08/2025 OBSTETRICS REPORT (Signed Final 09/08/2025 10:56 am) PATIENT INFO: ID #: [id number] : [birth year] (30 yrs)(F) Name: PAULA MOYER Visit Date: 09/07/2025 12:20 pm PERFORMED BY: Attending: Jaimee Diaz MD Performed By: Sarah Tomas RDMS Referred By: Laura Sp MANE Ref. Address: [address] [place] [address] Location: [facility] SERVICE(S) PROVIDED: US < 14 weeks Abdominal Ultrasound 74762 US Nuchal Translucency 42603 INDICATIONS: Encounter for screening for nuchal Z36.82 translucency Encounter for screening for Z36.3 malformations Obesity complicating , 1st O99.211 trimester 13 weeks gestation of Z3A.13 TECHNIQUE/SCAN QUALITY: Technique: Transabdominal Scan Satisfactory Quality: OB HISTORY: : 1 Term: 0 Brady: 0 SAB: 0 TOP: 0 Ectopic: 0 Livin VITAL SIGNS: Weight (lb) Height BMI 190 5'2 34.75 EVALUATION: Number Of Fetuses: 1 Preg. Location: Intrauterine Heart Rate(bpm): 147 Cardiac Activity: Observed Regular rhythm Presentation: Vertex Placenta Location: Anterior Appearance: Grade 0 Cord Insertion: Visualized Amniotic Fluid YAJAIRA FV: Within Normal Limits BIOMETRY: GESTATIONAL AGE: LMP: 13w 3d Date: 06/05/25 LAZARO: 03/12/26 Best: 13w 3d Det. By: LMP (06/05/25) LAZARO: 03/12/26 1ST TRIMESTER GENETIC SONOGRAM SCREENING: CRL: 66.65 mm G.Age: 13w 0d LAZARO: 03/15/26 Nuc Trans: 1.9 mm Nasal Bone: Present STANDARD ANATOMY: Cranium: Normal appearance Choroid Plexus: Normal appearance Nasal Bone: Present Diaphragm: Normal appearance Stomach: Normal appearance Abdomen: Normal appearance Abdominal Wall: Normal appearance Cord Vessels: Normal 3-Vessel Cord Kidneys: Normal appearance Bladder: Normal appearance Spine: Normal appearance Upper Extremities: Seen Lower Extremities: Seen Other: Cardiac angle is 57.91 degrees CERVIX UTERUS ADNEXA: Cervix Within Normal Limits Abdominally Uterus Size(cm) 13.76 x 8.09 x 7.51 Uterus Vol(ml): 437.73 Anteverted, anteflexed. Within Normal Limits Right Ovary Normal in size and appearance. It is found between the uterus and the pelvic sidewall. Left Ovary Size(cm) 1.91 x 2.1 x 2.82 Vol(ml): 5.92 Normal in size and appearance. It is found between the uterus and the pelvic sidewall. Cul De Sac There is no free fluid in the cul de sac. Adnexa Both adnexae appear unremarkable. COMMENTS: Ms. Moyer is being seen for first trimester screening for aneuploidy. - Her medical history is significant for hyperthyroidism. She was seen by endocrinology. - This is her first . - She had cell free DNA screening. Results were low-risk for all conditions assessed. - Ultrasound findings: The nuchal translucency measurement is < 95th% for the gestational age. - biometry is consistent with dates. Assessment of the anatomy is appropriate for the gestational age. There are no ultrasound findings to suggest aneuploidy. - Plan: 1. A detailed ultrasound and cervical length screening for risk of have been scheduled. - 2. The patient should be offered second trimester MSAFP only, to assess for risk of an open neural tube defect. - 3. Serial growth ultrasounds recommended. - 4. Please obtain an MFM consultation if desired. This ultrasound was read remotely by the physician. Thus, the physician did not communicate/discuss the findings or the limitations of this ultrasound with the patient. T Jaimee Diaz MD Electronically Signed Final Report 09/08/2025 10:56 am Laura Snowden DO IMG OB US PROCEDURES Final Re sult * Horizon 14 (09/02/2025 2:00 PM EDT) Blood Venous blood specimen / Unknown Laura Snowden DO LAB BLOOD ORDERABLES Final Re sult * Panorama test (08/30/2025 10:19 AM EDT) Blood Venous blood specimen / Unknown Laura Snowden DO LAB BLOOD ORDERABLES Final Re sult * Hepatitis C antibody (08/25/2025 12:18 PM EDT) Hepatitis C Antibody Negative Negative LAB CHEMISTRY METHOD 08/25/2025 5:38 PM EDT [facility] Blood Venous blood specimen / Unknown Venipuncture / Unknown 08/25/2025 12:18 PM EDT 08/25/2025 12:27 PM EDT Laura Snowden LAB BLOOD ORDERABLES Final Re sult Performing Organization Address [facility]/ZIP Co de Phone Number [facility] [address] [place] [address], [place] [phone] * HIV 1,2 antibody, p24 antigen with reflex to differentiation (08/25/2025 12:18 PM EDT) HIV Combo AB/AG Negative Negative LAB CHEMISTRY METHOD 08/25/2025 5:38 PM EDT [facility] Blood Venous blood specimen / Unknown Venipuncture / Unknown 08/25/2025 12:18 PM EDT 08/25/2025 12:27 PM EDT Narrative [facility] - 08/25/2025 5:38 PM EDT This assay is a 4th generation assay allowing for earlier detection of HIV infection by detecting the presence of the HIV-1 p24 antigen as well as the traditional antibodies to HIV type 1 (including group O) and type 2. Use of a 4th generation assay is the current CDC recommendation for HIV screening. Laura Snowden LAB BLOOD ORDERABLES Final Re sult Performing Organization Address [facility] Co de Phone Number [facility] [address] [place] [address], [place] [phone] * Hepatitis B surface antigen with reflex to confirmation (08/25/2025 12:18 PM EDT) Hepatitis B Surface Ag Negative Negative LAB CHEMISTRY METHOD 08/25/2025 5:10 PM EDT [facility] Blood Venous blood specimen / Unknown Venipuncture / Unknown 08/25/2025 12:18 PM EDT 08/25/2025 12:27 PM EDT Narrative [facility] - 08/25/2025 5:10 PM EDT Over the counter supplements containing high doses of biotin may interfere with this assay. If interference is suspected, patients shoud be retested after refraining from biotin supplements for 72 hours. [facility] LAB BLOOD ORDERABLES Final Re sult Performing Organization Address [facility]/ZIP Co de Phone Number [facility] [address] [place] [address], [place] [phone] * Treponema pallidum antibody with reflex to RPR and particle agglutination (08/25/2025 12:18 PM EDT) [facility] T. Pallidum Antibodies Negative Negative LAB CHEMISTRY METHOD 08/25/2025 6:34 PM EDT [facility] Blood Venous blood specimen / Unknown Venipuncture / Unknown 08/25/2025 12:18 PM EDT 08/25/2025 12:27 PM EDT [facility] LAB BLOOD ORDERABLES Final Re sult Performing Organization Address [facility] Co de Phone Number [facility] [address] [place] [address], [place] [phone] * Venipuncture charge (08/25/2025 12:18 PM EDT) [facility] Extra Tube Hold for add-ons. 08/25/2025 2:01 PM EDT [facility] Comment:Auto resulted. Blood Venous blood specimen / Unknown Venipuncture / Unknown 08/25/2025 12:18 PM EDT 08/25/2025 12:27 PM EDT [facility] LAB BLOOD ORDERABLES Final Re sult Performing Organization Address [facility]/ZIP Co de Phone Number [facility] [address] [place] [address], [place] [phone] * GTT gestational 1 hour (08/25/2025 12:18 PM EDT) Pathologist [facility] Glucose, 1 HR Gestational 97 <140 mg/dL LAB CHEMISTRY METHOD 08/25/2025 4:43 PM EDT [facility] Blood Venous blood specimen / Unknown Venipuncture / Unknown 08/25/2025 12:18 PM EDT 08/25/2025 12:27 PM EDT Narrative [facility] - 08/25/2025 4:43 PM EDT Gestational Diabetes Challenge Reference Range: 1 hour Glucose <140 mg/dL us Laura Snowden DO LAB BLOOD ORDERABLES Final Re sult [facility] [address] [place] [address], * Drug abuse screen expanded with reflex confirmation, urine (08/25/2025 12:18 PM EDT) [facility] Amphetamine Screen, Ur Negative Negative LAB CHEMISTRY METHOD 08/25/2025 6:22 PM EDT [facility] Comment:Certain OTC medicati ons containing ephedrine, phenylephrine, pseudoephedrine and phenylpropanolamine can cause false positive results. Barbiturate Screen, Ur Negative Negative LAB CHEMISTRY METHOD 08/25/2025 6:22 PM EDT [facility] Benzodiazepine Screen, Ur Negative Negative LAB CHEMISTRY METHOD 08/25/2025 6:22 PM EDT [facility] Cocaine Screen, Ur Negative Negative LAB CHEMISTRY METHOD 08/25/2025 6:22 PM EDT [facility] Opiate Screen, Ur Negative Negative LAB CHEMISTRY METHOD 08/25/2025 6:22 PM EDT [facility] Cannabinoid (THC) Screen, Ur Negative Negative LAB CHEMISTRY METHOD 08/25/2025 6:22 PM T [facility] Comment:Specimens from patie nts taking pantoprazole sodium (Protonix) have been shown to produce false positive results. Fentanyl, Ur Negative Negative LAB CHEMISTRY METHOD 08/25/2025 6:22 PM EDT [facility] Oxycodone Screen, Ur Negative Negative LAB CHEMISTRY METHOD 08/25/2025 6:22 PM EDT [facility] Urine Urine specimen obtained by clean catch procedure / Unknown Non-blood Collection / Unknown 08/25/2025 12:18 PM EDT 08/25/2025 12:27 PM EDT Narrative [facility] - 08/25/2025 6:22 PM EDT Assay cutoffs: Amphetamines 1000 ng/mL Barbiturates 200 ng/mL Benzodiazepines 200 ng/mL Cocaine 300 ng/mL Fentanyl 1 ng/mL Opiates 300 ng/mL Oxycodone 100 ng/mL THC 50 ng/mL Semi-quantitative assay for screening purposes only. Unconfirmed screening result should not be used for non-medical purposes. *POSITIVE RESULTS ARE AUTOMATICALLY SENT FOR ALTERNATE METHOD CONFIRMATION* Laura Snowden DO LAB URINE ORDERABLES Final Re sult [facility] [address] [place] [address], [place] [phone] * CBC auto differential (08/25/2025 12:18 PM EDT) WBC 6.6 4.8 - 10.8 K/mcL LAB HEMETOLOGY METHOD 08/25/2025 2:08 PM EDT [facility] RBC 4.00 3.80 - 4.80 M/mcL LAB HEMETOLOGY METHOD 08/25/2025 2:08 PM EDT [facility] Hemoglobin 12.0 11.5 - 16.0 g/dL LAB HEMETOLOGY METHOD 08/25/2025 2:08 PM EDT [facility] Hematocrit 35.2 35.0 - 47.0 % LAB HEMETOLOGY METHOD 08/25/2025 2:08 PM EDT [facility] MCV 88.7 79.0 - 98.0 FL LAB HEMETOLOGY METHOD 08/25/2025 2:08 PM EDT [facility] MCH 30.2 27.0 - 32.0 pcg LAB HEMETOLOGY METHOD 08/25/2025 2:08 PM [facility] MCHC 34.1 32.0 - 37.0 g/dL LAB HEMETOLOGY METHOD 08/25/2025 2:08 PM [facility] RDW 12.0 11.0 - 15.0 % LAB HEMETOLOGY METHOD 08/25/2025 2:08 PM [facility] Platelets 310 130 - 400 K/mcL LAB HEMETOLOGY METHOD 08/25/2025 2:08 PM [facility] MPV 10.1 7.0 - 11.0 FL LAB HEMETOLOGY METHOD 08/25/2025 2:08 PM [facility] NRBC 0.0 <1.0 % LAB HEMETOLOGY METHOD 08/25/2025 2:08 PM [facility] NRBC Absolute 0.00 <0.10 K/mcL LAB HEMETOLOGY METHOD 08/25/2025 2:08 PM [facility] Neutrophils Relative 69.6 % LAB HEMETOLOGY METHOD 08/25/2025 2:08 PM [facility] Lymphocytes Relative 20.6 % LAB HEMETOLOGY METHOD 08/25/2025 2:08 PM [facility] Monocytes Relative 7.7 % LAB HEMETOLOGY METHOD 08/25/2025 2:08 PM [facility] Eosinophils Relative 1.5 % LAB HEMETOLOGY METHOD 08/25/2025 2:08 PM [facility] Basophils Relative 0.3 % LAB HEMETOLOGY METHOD 08/25/2025 2:08 PM [facility] Immature Granulocytes Relative 0.3 % LAB HEMETOLOGY METHOD 08/25/2025 2:08 PM EDT [facility] Neutrophils Absolute 4.60 1.50 - 7.00 K/mcL LAB HEMETOLOGY METHOD 08/25/2025 2:08 PM EDT [facility] Lymphocytes Absolute 1.36 1.00 - 5.00 K/mcL LAB HEMETOLOGY METHOD 08/25/2025 2:08 PM EDT [facility] Monocytes Absolute 0.51 0.20 - 1.00 K/mcL LAB HEMETOLOGY METHOD 08/25/2025 2:08 PM EDT [facility] Eosinophils Absolute 0.10 0.00 - 0.50 K/mcL LAB HEMETOLOGY METHOD 08/25/2025 2:08 PM EDT [facility] Basophils Absolute 0.02 0.00 - 0.20 K/mcL LAB HEMETOLOGY METHOD 08/25/2025 2:08 PM EDT [facility] Immature Granulocytes Absolute 0.02 0.00 - 0.03 K/mcL LAB HEMETOLOGY METHOD 08/25/2025 2:08 PM EDT [facility] Blood Venous blood specimen / Unknown Venipuncture / Unknown 08/25/2025 12:18 PM EDT 08/25/2025 12:27 PM EDT Laura Snowden DO LAB BLOOD ORDERABLES Final Re sult [facility] [address] [place] [address], * Thyrotropin receptor antibody (08/25/2025 12:18 PM EDT) TRAB (Tsh Receptor Antibody) 1.08 <=1.75 IU/L 08/31/2025 3:00 PM EDT [facility] Comment: Test performed at [facility], [address], [place] [phone] Anel Petersen MD, PhD - Information Security Blood Venous blood specimen / Unknown Venipuncture / Unknown 08/25/2025 12:18 PM EDT 08/25/2025 12:27 PM EDT Laura Sp MANE LAB BLOOD ORDERABLES Final Re sult [facility] [address] [place] [phone] * Rubella antibody IgG (08/25/2025 12:18 PM EDT) Rubella IgG Quant 67.4 >=10.0 I Unit/mL LAB CHEMISTRY METHOD 08/25/2025 5:09 PM EDT [facility] Rubella IgG Antibody Interp Positive Positive LAB CHEMISTRY METHOD 08/25/2025 5:09 PM EDT [facility] Blood Venous blood specimen / Unknown Venipuncture / Unknown 08/25/2025 12:18 PM EDT 08/25/2025 12:27 PM EDT Laura Sp LAB BLOOD ORDERABLES Final Re sult Performing Organization Address City/[facility]/ZIP Co de Phone Number [facility] [address] [place] [address], * Type and screen (08/25/2025 12:18 PM EDT) ABO Group O 08/25/2025 7:47 PM EDT [facility] Rh Type Positive 08/25/2025 7:47 PM EDT [facility] Antibody Screen Negative 08/25/2025 7:47 PM EDT [facility] Blood Venous blood specimen / Unknown Venipuncture / Unknown 08/25/2025 12:18 PM EDT 08/25/2025 12:27 PM EDT Laura Snowden DO LAB BLOOD BANK TEST ORDERABLE S Final Result Performing Organization Address [facility]/[place]UST de Phone Number [facility] [address] [place] [address], [place] [phone] * Culture urine (08/25/2025 12:18 PM EDT) Culture, Urine 10,000-49,000 CFU/mL Mixed urogenital bridget, no uropathogens present. Suggest repeat specimen if clinically indicated. 08/26/2025 10:49 AM EDT [facility] Urine Urine specimen obtained by clean catch procedure / Unknown Non-blood Collection / Unknown 08/25/2025 12:18 PM EDT 08/25/2025 12:27 PM EDT Laura Snowden DO LAB MICROBIOLOGY - GENERAL OR DERABLES Final Result Performing Organization Address [facility] de Phone Number [facility] [address] [place] [address], [place] [phone] * Varicella zoster antibody IgG (08/25/2025 12:18 PM EDT) Varicella IgG Positive Positive LAB CHEMISTRY METHOD 08/26/2025 8:57 AM EDT [facility] Varicella Zoster IgG 2.28 >=1.00 S/CO LAB CHEMISTRY METHOD 08/26/2025 8:57 AM EDT [facility] Blood Venous blood specimen / Unknown Venipuncture / Unknown 08/25/2025 12:18 PM EDT 08/25/2025 12:27 PM EDT Narrative [facility] - 08/26/2025 8:57 AM EDT Interpretation >= 1.00 S/CO is considered to be consistent with Immunity Laura Snowden DO LAB BLOOD ORDERABLES Final Re sult Performing Organization Address [facility] Co de Phone Number [facility] [address] [place] [address], [place] [phone] * (ABNORMAL) Triiodothyronine total (08/25/2025 12:18 PM EDT) T3, Total 236.90(H) 60.00 - 181.00 ng/dL LAB CHEMISTRY METHOD 08/25/2025 6:23 PM EDT [facility] Blood Venous blood specimen / Unknown Venipuncture / Unknown 08/25/2025 12:18 PM EDT 08/25/2025 12:27 PM EDT Laura Snowden DO LAB BLOOD ORDERABLES Final Re sult [facility] [address] [place] [address], * (ABNORMAL) Thyroid stimulating hormone (08/25/2025 12:18 PM EDT) TSH <0.05(L) 0.40 - 4.00 mcIU/mL LAB CHEMISTRY METHOD 08/25/2025 6:23 PM EDT [facility] Blood Venous blood specimen / Unknown Venipuncture / Unknown 08/25/2025 12:18 PM EDT 08/25/2025 12:27 PM EDT Laura Snowden DO LAB BLOOD ORDERABLES Final Re sult [facility] [address] [place] [address], [place] [phone] * (ABNORMAL) Thyroxine free (08/25/2025 12:18 PM EDT) Free T4 1.99(H) 0.70 - 1.80 ng/dL LAB CHEMISTRY METHOD 08/25/2025 4:58 PM EDT [facility] Blood Venous blood specimen / Unknown Venipuncture / Unknown 08/25/2025 12:18 PM EDT 08/25/2025 12:27 PM EDT Laura Snowden LAB BLOOD ORDERABLES Final Re sult Performing Organization Address [facility]/ZIP Co de Phone Number [facility] [address] [place] [address], [place] [phone] * Hemoglobin A1c (08/25/2025 12:18 PM EDT) Hemoglobin A1C 5.2 <6.5 % LAB CHEMISTRY METHOD 08/25/2025 2:38 PM EDT [facility] Mean Bld Glu Estim. 103 mg/dL LAB CHEMISTRY METHOD 08/25/2025 2:38 PM EDT [facility] Blood Venous blood specimen / Unknown Venipuncture / Unknown 08/25/2025 12:18 PM EDT 08/25/2025 12:27 PM EDT Laura Snowden LAB BLOOD ORDERABLES Final Re sult Performing Organization Address [facility] Co de Phone Number [facility] [address] [place] [address], [place] [phone] * (ABNORMAL) POC , urine manually resulted (08/13/2025 9:40 AM EDT) HCG, Ur POC Positive(A ) Negative POC hCG Int QC Pass? Yes Yes Urine Urine specimen obtained by clean catch procedure / Unknown 08/13/2025 9:40 AM EDT Yolanda Sheth CNM POINT OF CARE TEST ENTER/EDIT ORDERABLES Final Result from Last 3 Months Insurance [facility] Care Teams Criminal Lawyer Relationship Specialty Start Date End Date Physician, No Pcp PCP - General 07/09/25
--- OUTSIDE RECORDS SUMMARY | 2025-10-21 19:33 | XMS_ITS | Encounter Summary ---
Author Organization [facility] [place] [address] Care Team Providers Care Wound Care Nurse Name Role Phone Physician, No Pcp Primary Care Provider Unavaila ble Encounter Details Date Type Department Care Team (Late st Contact Info) Description 09/17/2025 Results Follow-Up Obstetrics and Gynecology - [place] [address] [place] [address] Adali Soria [place] Social History Tobacco Use Types Packs/Day [...] for your loved ones. For example, child protective services specialist or elderly care for an older adult? [...] AM EST Ancillary Procedure Maternal Medicine - [address] [phone] 11/17/2025 10:30 AM EST Routine Obstetrics and Gynecology - [place] [address] [place] [address] Estrellita Doll CNM [address] [place] [address] documented as of this encounter Visit Diagnoses Not on filedocumented in this encounter Additional Health Concerns Assessment Noted Time PHQ-9 Depression Total Score: 0 08/24/20 11:27 AM EDT documented as of this encounter Care Teams Wound Care Nurse Relationship Specialty Start Date End Date Physician, No Pcp PCP - General 07/09/25 documented as of this encounter
--- OUTSIDE RECORDS SUMMARY | 2025-10-21 19:33 | XMS_ITS | Clinical Summary ---
Author Organization [address] Address [address] [place] [phone] Phone Care Team Providers Care Punch Press Feeder Name Role Phone Unavailable Primary Care Provider Unavailabl e Allergies No known active allergies Medications No known medications Active Problems No known active problems Social History Tobacco Use Types Packs/Day Years Used Date Smoking Tobacco: Never Smokeless Tobacco: Never Comments No Sex and Gender Information Value Date Recorded Sex Assigned at Not on file Legal Sex Female 4:47 PM EDT Gender Identity Not on file Sexual Orientation Not on file Last Filed Vital Signs Vital Sign Reading Time Taken Comments Blood Pressure 115/60 07/22/2022 8:03 PM EDT Pulse 85 07/22/2022 8:03 PM EDT Temperature 36.8 C (98.2 F) 07/22/2022 8:03 PM EDT Respiratory Rate 18 07/22/2022 8:03 PM EDT Oxygen Saturation 97% 07/22/2022 8:03 PM EDT Inhaled Oxygen Concentration - - Weight - - Height - - Body Mass Index - - Plan of Treatment Health Maintenance Due Date Last Done Comments HIV screening 2010 Hepatitis C screening 2015 Tetanus adult (Td q 10,TDAP once) 2017 Cervical cancer screening 2018 Influenza vaccine 07/02/2025 Covid-19 vaccine series ( - 2024- season) 2025 RSV Immunization (1 - 1-dose 75+ series) 2072 Meningococcal B Vaccine Aged Out No l onger eligible based on patient's age to complete this topic Meningococcal Vaccine Aged Out No hung grace eligible based on patient's age to complete this topic Pneumococcal Vaccine (2 - 49 years) Aged Out No longer eligible based on patient's age to complete this topic Insurance BS BS BS
--- OUTSIDE RECORDS SUMMARY | 2025-10-21 19:33 | XMS_ITS | Encounter Summary ---
Author Organization [facility] Address [address] [place] [address] Care Team Providers Care Talent Acquisition Program Manager Name Role Phone Physician, No Pcp Primary Care Provider Unavaila ble Reason for Referral * Consultation (Routine) - Pending Review Specialty Diagnoses / Procedures Referred By Mini scott Referred To Contact Endocrinology Diagnoses Hyperthyroidism in , antepartum, second trimester Maternal hyperthyroidism in second trimester, antepartum Laura Snowden DO [address] [place], [place] Phone: tel: fax: Referral ID Status Reason Start Date Expiration Date Visits Requested Visits Authorized [id number] Pending Review Specialty Services Required 10/21/2026 1 1 Reason for Visit * Reason Onset Date Comments Problem 10/21/2025 Encounter Details Date Type Department Care Team (Late st Contact Info) Description 10/21/2025 Telephone [facility]stetrics [facility]ne[facility] [place] [address] [facility] [place] [phone] Laura Snowden DO [address] [facility] [place] [place] Social History Tobacco Use Types Packs/Day [...] care for your loved ones. For example, early childhood education worker or elderly care for an older [...] as of this encounter Progress Notes * Laura Snowden DO - 10/21/2025 5:02 PM EST Signed. Thank you! * Sunitha Pascual RN - 10/21/2025 2:46 PM EST Pt is calling requesting referral to Dr.Marc Dallas at [facility]. She is requesting a 2nd opinion. States her mom goes there and she would like to be seen there. Was seen by [facility] today and had labs. She did call office and they told her that they could work on getting her appt if she had a referral from our office. Referral order pended. * Romy Garcia - 10/21/2025 2:01 PM EST Pt called - states she is 20 weeks - she was referred to see an bull gang worker and saw someone in [place] - now would like to have a second opinion- and is not sure if she needs a referral to see someone else - also has questions regarding some blood work orders - please call documented in this encounter Plan of Treatment Upcoming Encounters Date Type Department Care Team (Late st Contact Info) Description 10/27/2025 10:00 AM EST Ancillary Procedure Maternal Medicine - [place] [address] [place] [phone] 11/17/2025 10:30 AM EST Routine Obstetrics and Gynecology - [place] [address] [place] [address] Estrellita Doll, [address] [phone] Scheduled Referrals Name Type Priority Associated Diagnoses Orde r Schedule Ambulatory referral to Endocrinology Outpatient Referral Routine Hyperthyroidism in , antepartum, second trimester Maternal hyperthyroidism in second trimester, antepartum 1 Occurrences starting 10/21/2025 until 10/21/2026 documented as of this encounter Visit Diagnoses Diagnosis Maternal hyperthyroidism in second trimester, antepartum- Primary Hyperthyroidism in , antepartum, second trimester documented in this encounter Additional Health Concerns Assessment Noted Time PHQ-9 Depression Total Score: 0 08/24/20 25 11:27 AM EDT documented as of this encounter Care Teams Talent Acquisition Program Manager Relationship Specialty Start Date End Date Physician, No Pcp PCP - General 07/09/25 documented as of this encounter
--- OUTSIDE RECORDS SUMMARY | 2025-10-21 19:33 | XMS_ITS | Encounter Summary ---
Author Organization [facility] Address [address] [place] [address] Care Team Providers Care Hydrogen Operator Name Role Phone Physician, No Pcp Primary Care Provider Unavaila ble Reason for Referral * Consultation (Routine) - Authorized Specialty Diagnoses / Procedures Referred By Contac t Referred To Contact Maternal and Medicine Diagnoses Subclinical hyperthyroidism Laura Snowden DO [address] [place], [place] Phone: tel: fax: Maternal Medicine [address] [address] Phone: tel: fax: Referral ID Status Reason Start Date Expiration Date Visits Requested Visits Authorized [id number] Authorized Specialty Services Required 09/11/2026 1 1 Encounter Details Date Type Department Care Team (Late st Contact Info) Description 09/08/2025 Results Follow-Up Obstetrics and Gynecology - [place] [address] [place] [phone] Sunitha Pascual RN Social History Tobacco Use Types Packs/Day [...] for your loved ones. For example, child care cook or elderly care for an older adult? [...] AM EST Ancillary Procedure Maternal Medicine - [place] [address] [place] [address] 11/17/2025 10:30 AM EST Routine Obstetrics and Gynecology - [place] [address] [place] [address] [address] Doll [address] [phone] Scheduled Referrals Name Type Priority Associated Diagnoses Orde r Schedule Ambulatory referral to Perinatology Outpatient Referral Routine Subclinical hyperthyroidism 1 Occurrences starting 09/11/2025 until 09/11/2026 documented as of this encounter Visit Diagnoses Diagnosis Subclinical hyperthyroidism- Primary Thyrotoxicosis without mention of goiter or other cause, without mention of thyrotoxic crisis or storm documented in this encounter Additional Health Concerns Assessment Noted Time PHQ-9 Depression Total Score: 0 08/24/20 11:27 AM EDT documented as of this encounter Care Teams Hydrogen Operator Relationship Specialty Start Date End Date Physician, No Pcp PCP - General 07/09/25 documented as of this encounter
--- OUTSIDE RECORDS SUMMARY | 2025-10-21 19:33 | XMS_ITS | Encounter Summary ---
Author Organization [facility] [place] [address] Care Team Providers Care Manager Environmental Name Role Phone Physician, No Pcp Primary Care Provider Unavaila ble Encounter Details Date Type Department Care Team (Late st Contact Info) Description 08/31/2025 Results Follow-Up Obstetrics and Gynecology - [place] [address] [place] [phone] Laura Snowden DO [address] [place] Social History Tobacco Use Types Packs/Day Years [...] your loved ones. For example, child care attendant school or elderly care for an older adult? [...] AM EST Ancillary Procedure Maternal Medicine - [address] [phone] 11/17/2025 10:30 AM EST Routine Obstetrics and Gynecology - [place] [address] [place] [address] Estrellita Doll CNM [address] [place] [phone] documented as of this encounter Visit Diagnoses Diagnosis Encounter for supervision of normal first in first trimester- Primary documented in this encounter Additional Health Concerns Assessment Noted Time PHQ-9 Depression Total Score: 0 08/24/20 11:27 AM EDT documented as of this encounter Care Teams Manager Environmental Relationship Specialty Start Date End Date Physician, No Pcp PCP - General 07/09/25 documented as of this encounter
== END 2025-10-21 12:58 | disposition home or self-care (01) ==
LOC: HO.LAB 12:57
PROVIDERS: Visit Provider Internal Medicine Endocrinology, Diabetes & Metabolism
DX: O99.282 Endocrine, nutritional and metabolic diseases complicating pregnancy, second trimester (principal); E05.90 Thyrotoxicosis, unspecified without thyrotoxic crisis or storm; Z3A.19 19 weeks gestation of pregnancy
CPT/HCPCS: 36415; 83520; 84439; 84443; 84445; 84481

== ENCOUNTER 2025-10-21 12:57 | Outpatient (AMB) | payer OTHER, SELFPAY ==
--- NOTE | 2025-10-21 13:00 | MHC.OFFVIS ---
Vital Signs 10/21/25 13:03 Height 5 ft 3 in Weight 203 lb 11.314 oz BMI 36.1 BP 128/56 L Blood Pressure Location Rt brachial Position Sitting Pulse 106 H Pulse Source Pulse Oximeter Pulse Oximetry (%) 98 Oxygen Delivery Method Room Air Intake Visit Reasons: URGENT-hyperthyroidism in Intake Note: New patient urgently referred by PCP for Hyperthyroidism during . Patient states she is currently 19 in a half weeks with her 1st , having a babygirl. Patient reports due date is on March 12, 2026. Double Corner Cutter Required: No Accompanied by: Mother Allergies No Known Allergies Allergy (Verified 10/21/25 13:03) HPI Comments Details: 30 YO F with PMHx currntly 20 wks who is seen in consultation for abnormal thyroid function studies Has nausea ,vomiting during blood work Currently denies any dysphagia or hoarseness of voice. Denies sensation of swelling in the neck or difficulty breathing while lying flat. Denies any tenderness in the neck. Denies any palpitations, tremors, weight loss, frequent bowel movements. Denies any ocular complaints, blurred or double vision. Denies hair loss, dry skin, heat or cold intolerance, weight gain, confusion. Denies any history of head or neck irradiation. Denies any family history of thyroid cancer. Mom has thyroid problems had WALLS- Graves Disease Not biotin supplements The patient is a 30-year-old individual presenting with concerns related to and abnormal thyroid function tests. The patient is currently 20 weeks and was referred due to abnormal thyroid function tests conducted approximately two months ago, during the first trimester. The patient reports no palpitations, tremors, or changes in bowel movements, and weight gain has been appropriate for the . The patient experienced nausea and vomiting during the first trimester, which has since resolved. There is no history of blurred vision, double vision, or bulging eyes, and no issues with swallowing or voice changes. The patient has a family history of thyroid disease, specifically Graves' disease, which was treated with radioactive iodine therapy. The patient denies any history of neck or head irradiation and has no personal history of thyroid cancer. The patient does not take any supplements other than vitamins. Thyroid US: Labs: [facility] Medical History (Updated 10/21/25 @ 13:04 by David Mcpherson MD) Hyperthyroidism Surgical History (Updated 10/21/25 @ 13:05 by ANN-MARIE Tatum) No pertinent past surgical history Family History (Updated 10/21/25 @ 13:06 by ANN-MARIE Tatum) Mother Diabetes Family history of thyroid problem Graves disease Father Diabetes Social History Alcohol intake: never Patient Tobacco Use Status: Never used Tobacco Physical Exam Const Other: Absence of exophthalmos or proptosis. Thyroid gland is enlarged in size weighs about 25 g. There are no thyroid nodules palpated. There are no bruits present over the thyroid. There are no tremors present in the upper extremities Assessment & Plan Assessment & Plan (1) Hyperthyroidism: Code(s): E05.90 - Thyrotoxicosis, unspecified without thyrotoxic crisis or storm Category: Medical Plan: This 30-year-old female with a normal thyroid function studies during suggesting primary hyperthyroidism. Differential diagnosis includes hyperemesis gravidarum versus presence of Graves disease. Most likely, patient has Graves disease considering past history of thyroid issues and mother having Graves disease We will recheck TSH, free T4, free T3 with TRAB and TSI antibodies. Depending upon the above may need to start methimazole if free T4 is elevated and treat to a high normal free T4 During the consultation, I discussed with the patient the potential diagnosis of Graves' disease and the implications for . We reviewed the importance of monitoring thyroid function closely and the potential need for medication adjustments to manage hyperthyroidism during . I explained the risks associated with untreated hyperthyroidism, including the potential for miscarriage and growth issues. The patient was informed about the need for further blood tests to assess thyroid function and antibody levels. I provided information on potential treatment options, including the use of PTU and methimazole, and discussed the associated risks and benefits. The patient was advised to avoid biotin supplements before testing due to potential interference with results. - Schedule and complete blood tests for thyroid function and antibodies as soon as possible. - Avoid taking biotin supplements before the blood test. - Monitor for any symptoms of hyperthyroidism and report them immediately. - Orders: Orders Triiodothyronine T3 Free Today E05.90 - Thyrotoxicosis, unspecified without thyrotoxic crisis or storm Thyroid Stimulating Hormone Today E05.90 - Thyrotoxicosis, unspecified without thyrotoxic crisis or storm Free T4 (Free Thyroxine) Today E05.90 - Thyrotoxicosis, unspecified without thyrotoxic crisis or storm Thyrotropin Receptor Antibody Today E05.90 - Thyrotoxicosis, unspecified without thyrotoxic crisis or storm Thyroid Stimulating Immunoglob Today E05.90 - Thyrotoxicosis, unspecified without thyrotoxic crisis or storm Coding Level of Care Code New Pt Level 4 (18283) Diagnoses Hyperthyroidism E05.90
[2025-10-21 13:03] VITALS: BP 128/56; PULSE 106; O2SAT 98; BMI 36.1
== END 2025-10-21 13:42 | disposition home or self-care (01) ==
LOC: HO.ENCR 12:57
PROVIDERS: Visit Provider Internal Medicine Endocrinology, Diabetes & Metabolism
DX: E05.90 Thyrotoxicosis, unspecified without thyrotoxic crisis or storm (principal)
CPT/HCPCS: 99204